=== PATIENT | male | born 1955 | race Caucasian/White ===

== ENCOUNTER → 2020-06-02 | Outpatient (CLI) | payer MEDICARE, BC ==
[~2020-06-02] MED LIST: CENTRUM SILVER PO; CLONPOW23 PO; DEPA500T OR; FERR325T OR; ISOVUE-370 76% 100ML VIAL As Ordered ONE; KLON0.5T OR; LEVO2TA PO; LISI40TA OR; LISINAPRIL PO; METF500T4 OR; METFORMIN PO; PERCOCET PO; PROS5TAB OR; PROT1TAB2 OR; QUET30TA OR; SEROQUEL; TERAZOSIN PO; VIT B-12; VIT D PO; ZOCOR PO
--- NOTE | 2020-06-02 18:15 | REPVR ---
PROCEDURE INFORMATION: Exam: CT Angiography Neck With Contrast Exam date and time: 06/02/2020 4:53 PM Age: 64 years old Clinical indication: Pain; Other: Occipital neuralgia; Headache; Additional info: Occipital neuralgia, chronic migraine TECHNIQUE: Imaging protocol: Computed tomography angiography of the neck with intravenous contrast. 3D rendering (Not supervised by radiologist): MIP and/or 3D reconstructed images were created by the technologist. Radiation optimization: All CT scans at this facility use at least one of these dose optimization techniques: automated exposure control; mA and/or kV adjustment per patient size (includes targeted exams where dose is matched to clinical indication); or iterative reconstruction. Contrast material: ISOVUE 370; Contrast volume: 100 ml; Contrast route: INTRAVENOUS (IV); COMPARISON: No relevant prior studies available. FINDINGS: Right common carotid artery: No stenosis. No dissection or occlusion. Right internal carotid artery: No stenosis of the extracranial segment. No dissection or occlusion. Right external carotid artery: No occlusion or stenosis of the origin. Right vertebral artery: No stenosis. No dissection or occlusion. Left common carotid artery: No stenosis. No dissection or occlusion. Left internal carotid artery: Mild proximal left ICA noncalcified plaque as well as trace essentially focal calcified plaque. No stenosis. Left external carotid artery: No occlusion or stenosis of the origin. Left vertebral artery: No stenosis. No dissection or occlusion. Bones/joints: There is straightening of the cervical lordosis. [id number]-uw-eyfawjzl degenerative changes at C1-C2 mild lower cervical disc height loss and spondylosis. Soft tissues: Normal. No significant soft tissue swelling. IMPRESSION: 1. No acute vascular findings in the neck. 2. 0% right ICA stenosis. 3. 0% left ICA stenosis. 4. The vertebral arteries are patent without stenoses. REFERENCES: NASCET CRITERIA. The degree of internal carotid artery stenosis is based on NASCET criteria. Normal is no stenosis. Mild is less than 50% stenosis. Moderate is 50-69% stenosis. Severe is 70% to 99% stenosis. Total occlusion is no detectable patent lumen. Electronically signed by: Carmen Toledo On 06/02/2020 18:15:22 PM
--- NOTE | 2020-06-02 18:19 | REPVR ---
PROCEDURE INFORMATION: Exam: CT Head Without Contrast Exam date and time: 06/02/2020 4:53 PM Age: 64 years old Clinical indication: Pain; Headache; Migraine; Additional info: Occipital neuralgia, chronic migraine TECHNIQUE: Imaging protocol: Computed tomography of the head without contrast. Radiation optimization: All CT scans at this facility use at least one of these dose optimization techniques: automated exposure control; mA and/or kV adjustment per patient size (includes targeted exams where dose is matched to clinical indication); or iterative reconstruction. COMPARISON: No relevant prior studies available. FINDINGS: Brain: The brain demonstrates diffuse volume loss. There is white matter hypodensity most consistent with chronic small vessel ischemic change. No visible evolving territorial infarct. No hemorrhage. Cerebral ventricles: No ventriculomegaly. Bones/joints: Unremarkable. No acute fracture. Paranasal sinuses: Visualized sinuses are unremarkable. No fluid levels. Mastoid air cells: Visualized mastoid air cells are well aerated. Soft tissues: Unremarkable. IMPRESSION: No acute intracranial abnormality seen. Electronically signed by: Carmen Toledo On 06/02/2020 18:19:01 PM
--- NOTE | 2020-06-02 18:24 | REPVR ---
PROCEDURE INFORMATION: Exam: CT Angiography Head With Contrast Exam date and time: 06/02/2020 4:53 PM Age: 64 years old Clinical indication: Pain; Headache; Additional info: Occipital neuralgia, chronic migraine TECHNIQUE: Imaging protocol: Computed tomography angiography of the head with intravenous contrast. 3D rendering (Not supervised by radiologist): MIP and/or 3D reconstructed images were created by the technologist. Radiation optimization: All CT scans at this facility use at least one of these dose optimization techniques: automated exposure control; mA and/or kV adjustment per patient size (includes targeted exams where dose is matched to clinical indication); or iterative reconstruction. Contrast material: ISOVUE 370; Contrast volume: 100 ml; Contrast route: INTRAVENOUS (IV); COMPARISON: No relevant prior studies available. FINDINGS: ANTERIOR CIRCULATION: Right internal carotid artery: Unremarkable. Intracranial segment is patent with no significant stenosis. No aneurysm. Right middle cerebral artery: Unremarkable. No occlusion or significant stenosis. No aneurysm. Right anterior cerebral artery: Unremarkable. No occlusion or significant stenosis. No aneurysm. Left internal carotid artery: Unremarkable. Intracranial segment is patent with no significant stenosis. No aneurysm. Left middle cerebral artery: Unremarkable. No occlusion or significant stenosis. No aneurysm. Left anterior cerebral artery: Unremarkable. No occlusion or significant stenosis. No aneurysm. POSTERIOR CIRCULATION: Right vertebral artery: Unremarkable. No occlusion or significant stenosis. No aneurysm. Left vertebral artery: Unremarkable. No occlusion or significant stenosis. No aneurysm. Basilar artery: Unremarkable. No occlusion or significant stenosis. No aneurysm. Right posterior cerebral artery: Unremarkable. No occlusion or significant stenosis. No aneurysm. Left posterior cerebral artery: Unremarkable. No occlusion or significant stenosis. No aneurysm. Brain: No definite mass, mass effect, or midline shift. Cerebral ventricles: No ventriculomegaly. Bones/joints: Unremarkable. No acute fracture. Soft tissues: Unremarkable. IMPRESSION: No intracranial arterial proximal occlusion or stenosis, aneurysm or arteriovenous malformation seen. Electronically signed by: Carmen Toledo On 06/02/2020 18:24:05 PM
== END ==
LOC: M RAD 16:05
PROVIDERS: ATTEND Psychiatry & Neurology Neurology
DX: M54.81 Occipital neuralgia (principal); G44.221 Chronic tension-type headache, intractable; G43.719 Chronic migraine without aura, intractable, without status migrainosus; R55 Syncope and collapse
CPT/HCPCS: 70450; 70496; 70498; Q9967

== ENCOUNTER 2022-03-30 12:05 | Emergency (ER) | payer MEDICARE, BC ==
[~2022-03-30] VITALS: Ht 182.9 cm; Wt 150.0 kg
[~2022-03-30 12:05] MED LIST changes: -ISOVUE-370 76% 100ML VIAL As Ordered ONE
[2022-03-30] MEDS ORDERED: NS 500 ML IV ONE (13:05)
[2022-03-30 13:49] LABS: BASO # 0.1 10^3/uL (0.0-0.2); BASO % 0.7 % (0.0-1.0); EOS # 0.1 10^3/uL (0.0-0.5); EOS % 0.5 % (0.0-3.0); HEMATOCRIT 44.6 % (42.0-52.0); HEMOGLOBIN 14.9 g/dl (13.5-17.5); LYMPH # 1.1 10^3/uL (1.5-5.0); LYMPH % 11.8 % (24.0-44.0); MEAN CORPUSCULAR HEMOGLOBIN 30.7 pg (27.0-33.0); MEAN CORPUSCULAR HGB CONC 33.4 g/dl (32.0-36.5); MONO # 0.4 10^3/uL (0.0-0.8); MONO % 4.2 % (2.0-8.0); NEUTROPHILS # 7.9 10^3/uL (1.5-8.5); NEUTROPHILS % 81.8 % (36.0-66.0); PLATELET COUNT, AUTOMATED 120 10^3/uL (150-450); RED BLOOD COUNT 4.85 10^6/uL (4.30-6.10); WHITE BLOOD COUNT 9.7 10^3/uL (4.0-10.0)
[2022-03-30 14:04] LABS: PROTHROMBIN TIME 13.4 SECONDS (12.5-14.5)
[2022-03-30 14:09] LABS: HEMOGLOBIN A1c 8.9 %
[2022-03-30 14:19] LABS: RSV AMPLIFICATION NEGATIVE (NEGATIVE)
[2022-03-30 14:27] LABS: ACETONE/KETONE 1.91 MG/DL (<2.81); BLOOD UREA NITROGEN 11 MG/DL (7-18); CALCIUM LEVEL 8.7 MG/DL (8.8-10.2); CARBON DIOXIDE LEVEL 26 MEQ/L (21-32); CHLORIDE LEVEL 104 MEQ/L (98-107); CREATININE FOR GFR 1.21 MG/DL (0.70-1.30); FREE T4 0.42 NG/DL (0.76-1.46); GLOMERULAR FILTRATION RATE > 60.0 (>49); GLUCOSE, FASTING 335 MG/DL (70-100); POTASSIUM SERUM 3.9 MEQ/L (3.5-5.1); SODIUM LEVEL 140 MEQ/L (136-145)
[2022-03-30 14:35] LABS: CK-MB VALUE MASS 2.7 NG/ML (<3.6); MB/CK RELATIVE INDEX 0.63 (< OR =4)
[2022-03-30 14:55] VITALS: BP 130/83
[2022-03-30] MEDS ORDERED: ONDA4TAB6 PO (15:03)
[2022-03-30] MEDS ORDERED: MECL1TAB31 PO (15:03)
== END 2022-03-30 15:16 | disposition home or self-care (01) ==
LOC: EDBD 12:05 → M ED 12:34
DX: R42 Dizziness and giddiness (principal); E03.9 Hypothyroidism, unspecified; R73.9 Hyperglycemia, unspecified; E78.5 Hyperlipidemia, unspecified; F41.9 Anxiety disorder, unspecified; F41.0 Panic disorder [episodic paroxysmal anxiety]; F31.9 Bipolar disorder, unspecified; Z79.84 Long term (current) use of oral hypoglycemic drugs; Z79.899 Other long term (current) drug therapy; Z88.5 Allergy status to narcotic agent; Z88.8 Allergy status to other drugs, medicaments and biological substances